=== PATIENT | female | born 1955 | race Caucasian/White ===

== ENCOUNTER 2018-02-27 16:06 | Emergency (ER) | payer MEDICAID, OTHER ==
[~2018-02-27] VITALS: Ht 154.9 cm; Wt 64.0 kg
[2018-02-27 19:48] VITALS: BP 109/67
== END 2018-02-27 19:48 | disposition home or self-care (01) ==
LOC: ER 18:29
DX: S56.911A Strain of unspecified muscles, fascia and tendons at forearm level, right arm, initial encounter (principal); X50.0XXA Overexertion from strenuous movement or load, initial encounter; Y93.9 Activity, unspecified; Y92.9 Unspecified place or not applicable
CPT/HCPCS: 73080; 99283

== ENCOUNTER 2023-02-24 07:41 | Emergency (ER) | payer OTHER, MEDICAID ==
[~2023-02-24] VITALS: Ht 154.9 cm; Wt 73.0 kg
[2023-02-24 07:49] VITALS: BP 123/79
[2023-02-24] MEDS ORDERED: CYCL10TA21 MT (08:39)
[2023-02-24] MEDS ORDERED: NAP5EC PO (08:39)
== END 2023-02-24 08:56 | disposition home or self-care (01) ==
LOC: ER 07:41
DX: R07.89 Other chest pain (principal); V49.9XXA Car occupant (driver) (passenger) injured in unspecified traffic accident, initial encounter; Y93.89 Activity, other specified; Y92.89 Other specified places as the place of occurrence of the external cause; Y99.8 Other external cause status
CPT/HCPCS: 71045; 93005; 99283